=== PATIENT | male | born 1985 | race Caucasian/White ===

== ENCOUNTER 2025-02-16 13:36 | Outpatient (CLI) | payer MEDICAID, SELFPAY ==
--- NOTE | ~2025-02-16 | MR_ITS ---
EXAMINATION: MR abdomen wo/w con, MR pelvis wo/w con DATE: 02/16/2025 15:51 INDICATION: Periumbilical swelling TECHNIQUE: 1. Magnetic resonance imaging (MRI) of the abdomen was performed without intravenous contrast. Seque nces included coronal T2-weighted SS-FSE, coronal and axial FS 2D-FIESTA, axial STIR FSE, axial T2-we ighted SS-FSE, axial T2-weighted FS SS-FSE, axial diffusion-weighted SE, axial dual-echo T1-weighted FSPGR, and axial and coronal T1-weighted LAVA. Postcontrast axial T1-weighted LAVA images were obtain ed in a time course. Postcontrast coronal T1-weighted LAVA images were obtained. 2. MRI of the pelvis was performed without and with 20 mL Multihance intravenous contrast Utilizing the same contrast bolus. Fullfield sequences of the pelvis included axial and coronal T2-we ighted SS FSE, coronal 2D FIESTA, coronal 2D FIESTA FS, axial T1-weighted FSPGR, axial dual-echo T1-w eighted FSPGR, axial diffusion-weighted SE and axial T1 weighted LAVA. Small field of view sequences included axial, sagittal and coronal T2-weighted FSE centered on the uterus and adnexa. Postcontras t sequences included a time course axial T1-weighted LAVA with full-field of view of the pelvis. COMPARISON: None. FINDINGS: Heart size is normal. No pericardial or pleural effusion. Diffuse hepatic steatosis. Status post chol ecystectomy. No intra or extra hepatic biliary ductal dilation. Spleen, pancreas, bilateral adrenal g lands and kidneys are normal. Normal appendix. No bowel obstruction. Suggestion of a few sigmoid dive rticula without adjacent from trace stranding to suggest diverticulitis. Bladder and prostate are nor mal. No free intraperitoneal fluid. No pathologically enlarged abdominal or pelvic lymphadenopathy. IMPRESSION: 1. Diffuse hepatic steatosis. Otherwise unremarkable MRI of the abdomen and of the pelvis. Reviewed, dictated and finalized at location A. IMPRESSION: 1. Diffuse hepatic steatosis. Otherwise unremarkable MRI of the abdomen and of the pelvis.
--- OUTSIDE RECORDS SUMMARY | 2025-02-16 13:44 | XMS_ITS | Clinical Summary ---
Author Organization [facility] Address [address] [place] [phone] Care Team Providers Care Logistics Program Manager Name Role Phone Lois Quispe MD Primary Care Provider Allergies No known active allergies Medications cyclobenzaprine (FLEXERIL) 10 mg tablet Take 1 tablet (10 mg total) by mouth 2 (two) times a day as needed for muscle spasms 20 tablet 01/16/2025 Active Encounters Date Type Department Care Team Description 01/16/2025 8:53 PM CDT - 01/16/2025 10:15 PM CDT Emergency [facility] Emergency Department [address] [place] [id number] Mau Gardner MD Chest pain, unspecified type (Primary Dx) Discharge Disposition: Discharge to home or self care from Last 3 Months Social History Tobacco Use Types Packs/Day Years Used Date Smoking Tobacco: Never Assessed Personal Safety Answer Date Recorded Have you ever been in or are you currently in a harmful physical or emotional relationship or is someone making you feel afraid or unsafe? Denies 01/16/2025 Sex and Gender Information Value Date Recorded Sex Assigned at Not on file Legal Sex Male 4:45 PM CDT Gender Identity Not on file Sexual Orientation Not on file Last Filed Vital Signs Vital Sign Reading Time Taken Comments Blood Pressure 128/87 01/16/2025 9:45 PM CDT Pulse 76 01/16/2025 9:45 PM CDT Temperature 36.2 C (97.1 F) 01/16/2025 4:54 PM CDT Respiratory Rate 12 01/16/2025 9:00 PM CDT Oxygen Saturation 94% 01/16/2025 9:45 PM CDT Inhaled Oxygen Concentration - - Weight 102.1 kg (225 lb) 01/16/2025 4:54 PM CDT Height 180.3 cm (5' 11) 01/16/2025 4:54 PM CDT Body Mass Index 31.38 01/16/2025 4:54 PM CDT Plan of Treatment Health Maintenance Due Date Last Done Comments Depression Screening 1985 Hepatitis C Screening 1985 Varicella Vaccines (1 of 2 - 13+ 2-dose series) 1998 Hepatitis B Screening 10/27/2003 Regular Well Visit/Exam 18-64 10/27/2003 DTaP/Tdap/Td Vaccine (2 - Td or Tdap) 12/11/2020 12/11/2010 Influenza Vaccine (#1) 2025 HPV Vaccines Aged Out No longer eligi ble based on patient's age to complete this topic Pneumococcal vaccine <65 Aged Out No longer eligible based on patient's age to complete this topic Procedures Procedure Name Priority Date/Time Associated Diagnosis Comments XR CHEST 1 VIEW ED 01/16/2025 9:44 PM CDT TROPONIN T HIGH-SENSITIVITY 2-HOUR Timed 01/16/2025 9:21 PM CDT EGFR STAT 01/16/2025 7:10 PM CDT DIFFERENTIAL AUTO STAT 01/16/2025 7:1 0 PM CDT TROPONIN T HIGH-SENSITIVITY SERIES (BASELINE, 2HR, 4HR, 6HR) STAT 01/16/2025 7:10 PM CDT COMPREHENSIVE METABOLIC PANEL STAT 01/16/2025 7:10 PM CDT CBC WITH AUTO DIFFERENTIAL STAT 01/16/2025 7:10 PM CDT ECG 12-LEAD Routine 01/16/2025 4:54 PM CDT from Last 3 Months Results * XR Chest 1 Vw Portable (01/16/2025 9:44 PM CDT) Anatomical Region Laterality Modality Body, Chest N/A Computed Radiogr aphy 01/17/2025 6:33 AM CDT Impressions 01/17/2025 6:33 AM CDT Normal study. Electronically signed by: Kolby Escalera M.D. Narrative 01/17/2025 6:33 AM CDT EXAMINATION: XR CHEST 1 VIEW DATE: 01/16/2025 9:30 PM HISTORY: Chest pain FINDINGS:Normal heart size. Lungs clear Procedure Note Kolby Escalera MD - 01/17/2025 EXAMINATION: XR CHEST 1 VIEW DATE: 01/16/2025 9:30 PM HISTORY: Chest pain FINDINGS:Normal heart size. Lungs clear IMPRESSION: Normal study. Electronically signed by: Kolby Escalera M.D. us Mau Turk MD IMG XR PROCEDURES Final Resul t * Troponin T high-sensitivity 2-hour (01/16/2025 9:21 PM CDT) Trop T hs <6 <=22 ng/L Comment: Interpretive Data For further hscTnT resources including the diagnostic algorithm and an aid in interpretation, copy and paste this link: [email or web address].[email or web address]/show/hsTrop Current Interpretive Data last revised 2020. Trop T hs delta 0 ng/L [facility] Trop T hs interp Insignificant [facility] Blood 01/16/2025 9:21 PM CDT 01/16/2025 9:21 PM CDT Jen Bolden MOTOR GENERATOR SET OPERATOR LAB BLOOD ORDERABLES Final Result [facility] [id number] Department [place] [address] * Troponin T high-sensitivity series (baseline, 2hr, 4hr, 6hr) (01/16/2025 7:10 PM CDT) Trop T hs <6 <=22 ng/L Comment: Interpretive Data For further hscTnT resources including the diagnostic algorithm and an aid in interpretation, copy and paste this link: [email or web address]://nrl.testcatalog.org/show/[email or web address] Current Interpretive Data last revised 2020. Blood 01/16/2025 7:10 PM CDT 01/16/2025 7:26 PM CDT us Jen Bolden MOTOR GENERATOR SET OPERATOR LAB BLOOD ORDERABLES Final Result Performing Organization Address City/[facility]/ZIP Co de Phone Number [facility] MOORE [address] [place] [address] * eGFR (01/16/2025 7:10 PM CDT) eGFR >90 >=60 mL/min/1. 73 m2 Comment: Interpretive Data Reference Interval Normal >/= 90 mL/min/1.73m2 Mildly decreased* 60 - 89 mL/min/1.73m2 Mildly to moderately decreased 45 - 59 mL/min/1.73m2 Moderately to severely decreased 30 - 44 mL/min/1.73m2 Severely decreased 15 - 29 mL/min/1.73m2 Kidney Failure < 15 mL/min/1.73m2 *Relative to young adult level Estimated glomerular filtration rate is determined by the 2020 CKD-EPI equation recommended by the National Kidney Foundation (A Unifying Approach to GFR Estimation: Recommendations of the NKF-ASK Task Force on Reassessing the Inclusion of Race in Diagnosing Kidney Disease, JASN 202). The CKD-EPI equation should not be used for patients with unstable renal function and has not been validated in children and those over 70. Current interpretive data was last reviewed 2021. Blood 01/16/2025 7:10 PM CDT 01/16/2025 7:26 PM CDT us Jen Bolden NP LAB BLOOD ORDERABLES Final Result Performing Organization Address City/[facility]/ZIP Co de Phone Number [facility] [place] [phone] [place] [address] * Differential, auto (01/16/2025 7:10 PM CDT) Neutrophil abs 4.67 1.50 - 6.50 K/cumm Imm gran abs 0.05 0.00 - 0.10 K/cumm [facility] Lymphocyte abs 2.19 0.80 - 3.30 K/cumm [facility] Monocyte abs 0.67 0.20 - 0.80 K/cumm [facility] Eosinophil abs 0.43 0.00 - 0.50 K/cumm [facility] Basophil abs 0.04 0.00 - 0.10 K/cumm [facility] Neutrophil pct 58.1 % [facility] Comment: Interpretive Data Percent cell count reference ranges are not reported, since discordance with absolute values may lead to misinterpretation of CBC data. Current Interpretive Data was last revised on 2017. Imm gran pct 0.6 % [facility] Comment: Interpretive Data Percent cell count reference ranges are not reported, since discordance with absolute values may lead to misinterpretation of CBC data. Current Interpretive Data was last revised on 2017. Lymphocyte pct 27.2 % [facility] Comment: Interpretive Data Percent cell count reference ranges are not reported, since discordance with absolute values may lead to misinterpretation of CBC data. Current Interpretive Data was last revised on 2017. Monocyte pct 8.3 % [facility] Comment: Interpretive Data Percent cell count reference ranges are not reported, since discordance with absolute values may lead to misinterpretation of CBC data. Current Interpretive Data was last revised on 2017. Eosinophil pct 5.3 % [facility] Comment: Interpretive Data Percent cell count reference ranges are not reported, since discordance with absolute values may lead to misinterpretation of CBC data. Current Interpretive Data was last revised on 2017. Basophil pct 0.5 % [facility] Comment: Interpretive Data Percent cell count reference ranges are not reported, since discordance with absolute values may lead to misinterpretation of CBC data. Current Interpretive Data was last revised on 2017. Blood 01/16/2025 7:10 PM CDT 01/16/2025 7:26 PM CDT Jen Bolden NP LAB BLOOD ORDERABLES Final Result [facility] [address] Department [place] [address] * CBC with auto differential (01/16/2025 7:10 PM CDT) Pathologist [facility] WBC 8.05 3.80 - 9.90 K/cumm Hgb 15.4 13.0 - 17.5 g/dL [facility] Hct 44.2 38.9 - 50.3 % [facility] Plt 165 150 - 400 K/cumm [facility] MPV 11.1 9.1 - 12.3 fL [facility] RBC 5.02 4.30 - 5.80 M/cumm [facility] MCV 88.0 81.3 - 96.4 fL [facility] MCH 30.7 27.1 - 33.3 pg [facility] MCHC 34.8 32.3 - 35.7 g/dL [facility] RDW CV 13.2 11.1 - 14.9 % [facility] RDW SD 42.6 35.7 - 48.1 fL [facility] NRBC abs 0.00 0.00 - 0.01 K/cumm [facility] Blood 01/16/2025 7:10 PM CDT 01/16/2025 7:26 PM CDT Jen Bolden NP LAB BLOOD ORDERABLES Final Result [facility] [address] Department [place] [address] * (ABNORMAL) Comprehensive metabolic panel (01/16/2025 7:10 PM CDT) Pathologist [facility] Sodium 139 135 - 145 mmol/L Potassium, pl 3.7 3.3 - 4.9 mmol/L [facility] Chloride 103 97 - 110 mmol/L [facility] CO2 22 22 - 32 mmol/L [facility] Anion gap 14 2 - 15 mmol/L [facility] BUN 15 6 - 25 mg/dL [facility] Creatinine 0.76(L) 0.80 - 1.30 mg/dL [facility] Glucose 78 70 - 199 mg/dL [facility] Comment: Interpretive Data Fasting glucose >/= 126 mg/dl is diagnostic for diabetes. Fasting is defined as no caloric intake for at least 8 hours. Fasting glucose between 100 mg/dl to 125 mg/dl is diagnostic of prediabetes. In a patient with classic symptoms of hyperglycemia or hyperglycemic crisis, a random glucose >/= 200 mg/dl is diagnostic for diabetes. In the absence of unequivocal hyperglycemia, results should be confirmed by repeat testing. The classification and Diagnosis of Diabetes Diabetes Care 2021; 46: S19-S40. Current interpretive data was last revised 2022. Calcium 9.3 8.5 - 10.3 mg/dL [facility] Bilirubin, total 0.8 0.1 - 1.2 mg/dL [facility] Protein, pl 7.2 6.5 - 8.5 g/dL [facility] Albumin 4.6 3.5 - 5.0 g/dL [facility] Alk phos 69 40 - 130 Units/L [facility] ALT 24 7 - 55 Units/L [facility] AST 25 10 - 50 Units/L [facility] Blood 01/16/2025 7:10 PM CDT 01/16/2025 7:26 PM CDT us Jen Bolden NP LAB BLOOD ORDERABLES Final Result Performing Organization Address City/[facility] Co de Phone Number [facility] [phone] Department [place] [address] * ECG 12 lead (01/16/2025 4:54 PM CDT) 01/16/2025 4:54 PM CDT Narrative [facility] - 01/17/2025 7:55 AM CDT Vent Rate: 89 bpm RR Interval: 670 msec [place] Interval: 134 msec QRS Duration: 91 msec QT Interval: 339 msec QTC Interval: 386 msec P-R-T [place]: 54 - 33 - 47 degrees IMPRESSION: SINUS RHYTHM NORMAL ECG Electronically Signed By: Samson Black MD [facility] us Mario Silverman MD ECG ORDERABLES Final Resu lt Performing Organization Address City/[facility]/ZIP Co de Phone Number [facility] from Last 3 Months Insurance IDPA Care Teams Logistics Program Manager Relationship Specialty Start Date End Date Lois Quispe MD [address] [place] [address] [phone] PCP - General Emergency Medicine 01/16/25
--- OUTSIDE RECORDS SUMMARY | 2025-02-16 13:44 | XMS_ITS | Clinical Summary ---
Author Organization [facility] Address [facility] [place] [address] Care Team Providers Care Lead Programmer Name Role Phone Unavailable Primary Care Provider Unavailabl e Social History Tobacco Use Types Packs/Day Years Used Date Smoking Tobacco: Never Assessed Sex and Gender Information Value Date Recorded Sex Assigned at Not on file Legal Sex Male 8:02 AM CDT Gender Identity Not on file Sexual Orientation Not on file Plan of Treatment Health Maintenance Due Date Last Done Comments Annual Physical 1988 Hepatitis C 10/27/2003 DTaP, Tdap and Td Vaccines ( 1 - Tdap) 2004 Hepatitis B Vaccines (1 of 3 - 19+ 3-dose series) 2004 COVID-19 Vaccine (2023-2 5 season) 2024 HPV Vaccines Aged Out No longer eligi ble based on patient's age to complete this topic Meningococcal B Vaccine Aged Out No l onger eligible based on patient's age to complete this topic Meningococcal Vaccine Aged Out No renetta timothy eligible based on patient's age to complete this topic Pneumococcal Vaccine: Pediat rics (0 to 5 Years) and At-Risk Patients (6 to 49 Years) Aged Out No longer eligible b ased on patient's age to complete this topic RSV Immunizations Under 20 Months Aged Out No longer eligible based on patient's age to complete this topic
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
--- OUTSIDE RECORDS SUMMARY | 2025-02-16 13:44 | XMS_ITS | Referral Summary ---
Author Organization [facility] Address [address] [place] [phone] Care Team Providers Care Addiction Social Worker Name Role Phone Lois Quispe MD Primary Care Provider Encounters Date Type Department Care Team Description 01/16/2025 8:53 PM CDT - 01/16/2025 10:15 PM CDT Emergency [facility] Emergency Department [address] [place] [id number] Mau Gardner MD Chest pain, unspecified type (Primary Dx) Discharge Disposition: Discharge to home or self care from Last 3 Months Allergies No known active allergies Medications cyclobenzaprine (FLEXERIL) 10 mg tablet Take 1 tablet (10 mg total) by mouth 2 (two) times a day as needed for muscle spasms 20 tablet 01/16/2025 Active Social History Tobacco Use Types Packs/Day Years [...] 01/16/2025 4:54 PM CDT Plan of Treatment Not on file Procedures Procedure Name Priority Date/Time Associated Diagnosis [...] study. Electronically signed by: Kolby Escalera M.D. Mau Turk MD IMG XR PROCEDURES Final Resul t * Troponin T high-sensitivity 2-hour (01/16/2025 9:21 PM CDT) Trop T hs <6 <=22 ng/L Comment: Interpretive Data For further hscTnT resources including the diagnostic algorithm and an aid in interpretation, copy and paste this link: https://[email or web address]/show/hsTrop Current Interpretive Data last revised 2020. Trop T hs delta 0 ng/L [facility] Trop T hs interp Insignificant [facility] Blood 01/16/2025 9:21 PM CDT 01/16/2025 9:21 PM CDT Jen Bolden GENERAL ASSIGNMENT REPORTER LAB BLOOD ORDERABLES Final Result Performing Organization Address [facility] Co de Phone Number [facility] [address] [facility] [place] [address] * Troponin T high-sensitivity series (baseline, 2hr, 4hr, 6hr) (01/16/2025 7:10 PM CDT) Trop T hs <6 <=22 ng/L Comment: Interpretive Data For further hscTnT resources including the diagnostic algorithm and an aid in interpretation, copy and paste this link: [email or web address]/show/[email or web address] Current Interpretive Data last revised 2020. Blood 01/16/2025 7:10 PM CDT 01/16/2025 7:26 PM CDT Jen Bolden NP LAB BLOOD ORDERABLES Final Result Performing Organization Address City/[facility]/ZIP Co de Phone Number [facility] [address] Department [place] [address] * eGFR (01/16/2025 7:10 PM CDT) Pathologist [facility] eGFR >90 >=60 mL/min/1. 73 m2 Comment: [...] of Race in Diagnosing Kidney Disease, JASN 2020). The CKD-EPI equation should not be used for patients with unstable renal function and has not been validated in children and those over 70. Current interpretive data was last reviewed 2021. Blood 01/16/2025 7:10 PM CDT 01/16/2025 7:26 PM CDT Jen Bolden NP LAB BLOOD ORDERABLES Final Result [facility] [id number] Department [place] [address] * Differential, auto (01/16/2025 7:10 PM CDT) Pathologist [facility] Neutrophil abs 4.67 1.50 - 6.50 K/cumm Imm gran abs 0.05 0.00 - 0.10 K/cumm [facility] Lymphocyte abs 2.19 0.80 - 3.30 K/cumm [facility] Monocyte abs 0.67 0.20 - 0.80 K/cumm [facility] Eosinophil abs 0.43 0.00 - 0.50 K/cumm [facility] Basophil abs 0.04 0.00 - 0.10 K/cumm [facility] Neutrophil pct 58.1 % [facility] Comment: Interpretive Data Percent cell count reference ranges are not reported, since discordance with absolute values may lead to misinterpretation of CBC data. Current Interpretive Data was last revised on 2017. Imm gran pct 0.6 % [facility] Comment: Interpretive Data Percent cell count reference ranges are not reported, since discordance with absolute values may lead to misinterpretation of CBC data. Current Interpretive Data was last revised on 2017. Lymphocyte pct 27.2 % [facility] Comment: Interpretive Data Percent cell count reference ranges are not reported, since discordance with absolute values may lead to misinterpretation of CBC data. Current Interpretive Data was last revised on 2017. Monocyte pct 8.3 % [facility] Comment: Interpretive Data Percent cell count reference ranges are not reported, since discordance with absolute values may lead to misinterpretation of CBC data. Current Interpretive Data was last revised on 2017. Eosinophil pct 5.3 % [facility] Comment: Interpretive Data Percent cell count reference ranges are not reported, since discordance with absolute values may lead to misinterpretation of CBC data. Current Interpretive Data was last revised on 2017. Basophil pct 0.5 % [facility] Comment: Interpretive Data Percent cell count reference ranges are not reported, since discordance with absolute values may lead to misinterpretation of CBC data. Current Interpretive Data was last revised on 2017. Blood 01/16/2025 7:10 PM CDT 01/16/2025 7:26 PM CDT Jen Bolden NP LAB BLOOD ORDERABLES Final Result [facility] [address] Department [place] [address] * CBC with auto differential (01/16/2025 7:10 PM CDT) WBC 8.05 3.80 - 9.90 K/cumm Hgb 15.4 13.0 - 17.5 g/dL [facility] Hct 44.2 38.9 - 50.3 % [facility] Plt 165 150 - 400 K/cumm [facility] MPV 11.1 9.1 - 12.3 fL [facility] RBC 5.02 4.30 - 5.80 M/cumm [facility] MCV 88.0 81.3 - 96.4 fL [facility] MCH 30.7 27.1 - 33.3 pg [facility] MCHC 34.8 32.3 - 35.7 g/dL [facility] RDW CV 13.2 11.1 - 14.9 % [facility] RDW SD 42.6 35.7 - 48.1 fL [facility] NRBC abs 0.00 0.00 - 0.01 K/cumm [facility] Blood 01/16/2025 7:10 PM CDT 01/16/2025 7:26 PM CDT Jen Bolden NP LAB BLOOD ORDERABLES Final Result [facility] [address] Department [place] [address] * (ABNORMAL) Comprehensive metabolic panel (01/16/2025 7:10 PM CDT) Sodium 139 135 - 145 mmol/L Potassium, pl 3.7 3.3 - 4.9 mmol/L [facility] Chloride 103 97 - 110 mmol/L [facility] CO2 22 22 - 32 mmol/L [facility] Anion gap 14 2 - 15 mmol/L [facility] BUN 15 6 - 25 mg/dL [facility] Creatinine 0.76(L) 0.80 - 1.30 mg/dL [facility] Glucose 78 70 - 199 mg/dL [facility] Comment: Interpretive Data Fasting glucose >/= 126 [...] Calcium 9.3 8.5 - 10.3 mg/dL [facility] Bilirubin, total 0.8 0.1 - 1.2 mg/dL [...] Bolden NP LAB BLOOD ORDERABLES Final Result [facility] [address] Department [place] [address] * ECG 12 lead (01/16/2025 4:54 PM CDT) 01/16/2025 4:54 PM CDT Narrative [facility] - 01/17/2025 7:55 AM CDT Vent Rate: 89 bpm RR Interval: 670 msec ND Interval: 134 msec QRS Duration: 91 msec QT Interval: 339 msec QTC Interval: 386 msec P-R-T [place]: 54 - 33 - 47 degrees IMPRESSION: SINUS RHYTHM NORMAL ECG Electronically Signed By: Samson Black MD [facility] us Mario Silverman MD ECG ORDERABLES Final Resu lt [facility] from Last 3 Months Insurance IDPA Care Teams Addiction Social Worker Relationship Specialty Start Date End Date Lois Quispe MD [address] [place] [id number] PCP - General Emergency Medicine 01/16/25
== END 2025-02-16 13:37 | disposition home or self-care (01) ==
PROVIDERS: PCP Emergency Medicine; Visit Provider Emergency Medicine
DX: K76.0 Fatty (change of) liver, not elsewhere classified (principal)
CPT/HCPCS: 72197; 74183; A9577